=== PATIENT | female | born 1960 | race African-American/Black ===

== ENCOUNTER 2017-04-18 23:48 | Inpatient (IN) | payer SELFPAY ==
[2017-04-19 00:10] LABS: POC GLUCOSE 595 mg/dL (70-99)
[2017-04-19 01:30] LABS: ADD MAN DIFF? NO
[2017-04-19] MEDS: IV NORMAL SALINE 1000ML BAG 1,000 ML IV ×14 (01:30→23:15)
[2017-04-19 01:33] LABS: BASO # 0.1 x10^3/uL (0.0-0.2); BASO % 1 % (0-3); EOS # 0.2 x10^3/uL (0.0-0.7); EOS % 3 % (0-3); HEMATOCRIT 42.4 % (36.0-47.0); HEMOGLOBIN 14.5 g/dL (12.0-15.5); LYMPH # 2.3 x10^3/uL (1.0-4.8); LYMPH % 35 % (24-48); MEAN CORPUSCULAR HEMOGLOBIN 29 pg (25-35); MEAN CORPUSCULAR HGB CONC 34 g/dL (31-37); MEAN CORPUSCULAR VOLUME 85 fL (79-100); MONO # 0.6 x10^3/uL (0.0-1.1); MONO % 10 % (0-9); NEUT # 3.5 x10^3uL (1.8-7.7); NEUT % 52 % (31-73); PLATELET COUNT 239 x10^3/uL (140-400); RED CELL DISTRIBUTION WIDTH 12.8 % (11.5-14.5); WHITE BLOOD COUNT 6.7 x10^3/uL (4.0-11.0)
[2017-04-19 01:42] LABS: BILIRUBIN,URINE NEGATIVE (NEG); CLARITY,URINE CLEAR; COLOR,URINE STRAW; GLUCOSE,URINE >=1000 mg/dL (NEG); NITRITE,URINE NEGATIVE (NEG); PH,URINE 6.5; PROTEIN,URINE NEGATIVE (NEG-TRACE); UROBILINOGEN,URINE 0.2 mg/dL (0.2 mg/dL)
[2017-04-19 01:43] LABS: BACTERIA,URINE 0 /HPF (0-FEW); RBC,URINE 0 /HPF (0-2); SQUAMOUS EPITHELIAL CELL,UR FEW /LPF
[2017-04-19 01:44] LABS: AMPHETAMINE/METHAMPHETAMINE NEG (NEG); BARBITURATES NEG (NEG); BENZODIAZEPINES NEG (NEG); CANNABINOIDS NEG (NEG); COCAINE NEG (NEG); ETHANOL, URINE NEG (NEG); METHADONE NEG (NEG); OPIATES NEG (NEG); PHENCYCLIDINE NEG (NEG)
[2017-04-19 01:51] LABS: ANION GAP 10 (6-14); BLOOD UREA NITROGEN 12 mg/dL (7-20); BUN/CREATININE RATIO 13 (6-20); CALCIUM 9.9 mg/dL (8.5-10.1); CARBON DIOXIDE 28 mmol/L (21-32); CHLORIDE 93 mmol/L (98-107); CREATININE 0.9 mg/dL (0.6-1.0); GFR 78.1; GLUCOSE 492 mg/dL (70-99); POTASSIUM 3.8 mmol/L (3.5-5.1); SODIUM 131 mmol/L (136-145)
[2017-04-19 01:57] LABS: ALBUMIN/GLOBULIN RATIO 0.9 (1.0-1.7); ALK PHOS 174 U/L (46-116); ALT (SGPT) 22 U/L (14-59); AST (SGOT) 13 U/L (15-37); CREATINE KINASE 60 U/L (26-192); MAGNESIUM 1.7 mg/dL (1.8-2.4); TOTAL BILIRUBIN 0.4 mg/dL (0.2-1.0); TOTAL PROTEIN 8.6 g/dL (6.4-8.2)
[2017-04-19 01:57] LABS: TROPONINI < 0.017 ng/mL (0.000-0.055)
[2017-04-19 02:04] LABS: THYROID STIM HORMONE (TSH) 1.813 uIU/mL (0.358-3.74)
[2017-04-19 02:48] LABS: POC GLUCOSE 370 mg/dL (70-99)
[2017-04-19] MEDS: INSULIN REGULAR 100 UNIT/ML 10ML VIAL. IV ×2 (02:58)
[2017-04-19] MEDS: HYDROcodone/APAP 5/325MG 1 TAB TABLET PO ×2 (03:01)
[2017-04-19] MEDS: ONDANSETRON PF 4 MG/2 ML VIAL. IV ×2 (06:06)
[2017-04-19] MEDS: NITROGLYCERIN SUBLINGUAL 0.4 MG BOTTLE OF 25. SL ×4 (06:06→06:14)
[2017-04-19 06:55] LABS: TROPONINI < 0.017 ng/mL (0.000-0.055)
[2017-04-19 07:15] LABS: CKMB MASS 0.8 ng/mL (0.0-3.6); CREATINE KINASE 55 U/L (26-192)
[2017-04-19 08:19] LABS: POC GLUCOSE 229 mg/dL (70-99)
[2017-04-19 08:56] LABS: CHOLESTEROL 230 mg/dL (0-200); CHOLESTEROL/HDL RATIO 3.2; HDLC 72 mg/dL (40-60); LDLC 111 mg/dL (0-100); NON-HDL CHOLESTEROL 158 mg/dL (0-129); TRIGLYCERIDES 235 mg/dL (0-150); VLDLC 47 mg/dL (0-40)
[2017-04-19] MEDS ORDERED: DEXTROSE 50% 25 GM / 50ML DISP.SYRIN. IV ×4 (10:00→17:30)
[2017-04-19 11:32] LABS: POC GLUCOSE 202 mg/dL (70-99)
[2017-04-19] MEDS: INSULIN ASPART 300 UNITS/3 ML INSULN.PEN SQ ×6 (12:06→17:44)
[2017-04-19 12:18] LABS: HEMOGLOBIN A1C 13.8 % (4.8-5.6)
[2017-04-19 12:57] LABS: TROPONINI < 0.017 ng/mL (0.000-0.055)
[2017-04-19 13:28] LABS: CKMB MASS 0.7 ng/mL (0.0-3.6); CREATINE KINASE 72 U/L (26-192)
[2017-04-19] MEDS: REGADENOSON 0.4 MG/5 ML DISP.SYRIN. IV ×2 (14:30)
[2017-04-19] MEDS: ASPIRIN ENTERIC COATED 81 MG TABLET.DR. PO ×2 (15:46)
[2017-04-19] MEDS: LISINOPRIL 10 MG TABLET PO ×2 (15:47)
[2017-04-19 16:41] LABS: POC GLUCOSE 381 mg/dL (70-99)
[2017-04-19] MEDS: metFORMIN 500 MG TABLET PO ×2 (18:42)
[2017-04-19 20:38] LABS: POC GLUCOSE 263 mg/dL (70-99)
[2017-04-19] MEDS: ATORVASTATIN CALCIUM 20 MG TABLET PO ×2 (21:08)
[2017-04-19] MEDS: ENOXAPARIN 40 MG/0.4 ML SYRINGE. SQ ×2 (21:08)
[2017-04-19] MEDS: INSULIN DETEMIR 300 UNITS/3 ML INSULN.PEN. SQ ×2 (21:15)
[2017-04-20 04:41] LABS: ADD MAN DIFF? NO
[2017-04-20 04:44] LABS: BASO % 1 % (0-3); EOS # 0.2 x10^3/uL (0.0-0.7); EOS % 3 % (0-3); HEMATOCRIT 36.2 % (36.0-47.0); HEMOGLOBIN 12.2 g/dL (12.0-15.5); LYMPH # 2.3 x10^3/uL (1.0-4.8); LYMPH % 41 % (24-48); MEAN CORPUSCULAR HEMOGLOBIN 29 pg (25-35); MEAN CORPUSCULAR HGB CONC 34 g/dL (31-37); MEAN CORPUSCULAR VOLUME 86 fL (79-100); MONO # 0.5 x10^3/uL (0.0-1.1); MONO % 9 % (0-9); NEUT # 2.6 x10^3uL (1.8-7.7); NEUT % 47 % (31-73); PLATELET COUNT 194 x10^3/uL (140-400); RED BLOOD COUNT 4.22 x10^6/uL (3.50-5.40); RED CELL DISTRIBUTION WIDTH 12.7 % (11.5-14.5); WHITE BLOOD COUNT 5.5 x10^3/uL (4.0-11.0)
[2017-04-20 05:14] LABS: ALBUMIN 2.7 g/dL (3.4-5.0); ALBUMIN/GLOBULIN RATIO 0.8 (1.0-1.7); ALK PHOS 115 U/L (46-116); ALT (SGPT) 15 U/L (14-59); ANION GAP 6 (6-14); AST (SGOT) 13 U/L (15-37); BLOOD UREA NITROGEN 9 mg/dL (7-20); BUN/CREATININE RATIO 15 (6-20); CALCIUM 8.3 mg/dL (8.5-10.1); CARBON DIOXIDE 27 mmol/L (21-32); CHLORIDE 107 mmol/L (98-107); CREATININE 0.6 mg/dL (0.6-1.0); GFR 124.7; GLUCOSE 232 mg/dL (70-99); POTASSIUM 4.5 mmol/L (3.5-5.1); SODIUM 140 mmol/L (136-145); TOTAL BILIRUBIN 0.4 mg/dL (0.2-1.0); TOTAL PROTEIN 5.9 g/dL (6.4-8.2)
[2017-04-20 08:24] LABS: POC GLUCOSE 165 mg/dL (70-99)
[2017-04-20] MEDS: ASPIRIN ENTERIC COATED 81 MG TABLET.DR. PO ×2 (08:35)
[2017-04-20] MEDS: metFORMIN 500 MG TABLET PO ×4 (08:35→17:18)
[2017-04-20] MEDS: LISINOPRIL 10 MG TABLET PO ×2 (08:36)
[2017-04-20] MEDS: INSULIN ASPART 300 UNITS/3 ML INSULN.PEN SQ ×6 (08:41→17:22)
[2017-04-20 11:30] LABS: POC GLUCOSE 260 mg/dL (70-99)
[2017-04-20 17:01] LABS: POC GLUCOSE 223 mg/dL (70-99)
[2017-04-20] MEDS: ENOXAPARIN 40 MG/0.4 ML SYRINGE. SQ ×2 (21:11)
[2017-04-20] MEDS: ATORVASTATIN CALCIUM 20 MG TABLET PO ×2 (21:11)
[2017-04-20] MEDS: INSULIN DETEMIR 300 UNITS/3 ML INSULN.PEN. SQ ×2 (21:16)
[2017-04-21 08:01] LABS: POC GLUCOSE 184 mg/dL (70-99)
[2017-04-21] MEDS: ASPIRIN ENTERIC COATED 81 MG TABLET.DR. PO ×2 (08:40)
[2017-04-21] MEDS: LISINOPRIL 10 MG TABLET PO ×2 (08:41)
[2017-04-21] MEDS: metFORMIN 500 MG TABLET PO ×4 (08:41→16:54)
[2017-04-21] MEDS: INSULIN ASPART 300 UNITS/3 ML INSULN.PEN SQ ×6 (08:50→16:59)
[2017-04-21 11:22] LABS: POC GLUCOSE 246 mg/dL (70-99)
[2017-04-21 16:29] LABS: POC GLUCOSE 219 mg/dL (70-99)
[2017-04-21 20:42] LABS: POC GLUCOSE 261 mg/dL (70-99)
[2017-04-21] MEDS: ATORVASTATIN CALCIUM 20 MG TABLET PO ×2 (21:32)
[2017-04-21] MEDS: ENOXAPARIN 40 MG/0.4 ML SYRINGE. SQ ×2 (21:33)
[2017-04-21] MEDS: INSULIN DETEMIR 300 UNITS/3 ML INSULN.PEN. SQ ×2 (21:36)
[2017-04-22 07:44] LABS: POC GLUCOSE 146 mg/dL (70-99)
[2017-04-22] MEDS: ASPIRIN ENTERIC COATED 81 MG TABLET.DR. PO ×2 (08:24)
[2017-04-22] MEDS: metFORMIN 500 MG TABLET PO ×2 (08:25)
[2017-04-22] MEDS: LISINOPRIL 10 MG TABLET PO ×2 (08:25)
[2017-04-22] MEDS: INSULIN ASPART 300 UNITS/3 ML INSULN.PEN SQ ×4 (08:27→12:22)
[2017-04-22 11:19] LABS: POC GLUCOSE 235 mg/dL (70-99)
[2017-04-22 15:06] LABS: POC GLUCOSE 270 mg/dL (70-99)
== END 2017-04-22 15:20 | disposition home or self-care (01) | DRG 305 ==
LOC: ER 23:48 → 5 NORTH 04-19 03:05
PROVIDERS: Internal Medicine
DX: I10 Essential (primary) hypertension (principal); E11.65 Type 2 diabetes mellitus with hyperglycemia; I07.1 Rheumatic tricuspid insufficiency; E78.5 Hyperlipidemia, unspecified; E86.0 Dehydration; Z79.4 Long term (current) use of insulin; Z79.82 Long term (current) use of aspirin; Z79.899 Other long term (current) drug therapy; Z82.49 Family history of ischemic heart disease and other diseases of the circulatory system; Z83.3 Family history of diabetes mellitus
CPT/HCPCS: 36415; 78452; 80053; 80061; 80307; 81001; 82550; 82553; 82962; 83036; 83735; 84443; 84484; 85025; 87086; 93005; 93017; 93306; 96361; 96374; 96375; 96376; 99285; 99285-25; A9500; J1650; J1815; J2405; J2785; J7030